=== PATIENT | female | born 1965 | race Caucasian/White ===

== ENCOUNTER 2020-07-09 13:01 | Outpatient (CLI) | payer BC | END 2020-07-09 13:02 | disposition home or self-care (01) | LOC: CSHMAMMO 13:01 | PROVIDERS: ATTEND Orthopaedic Surgery | DX: N95.9 Unspecified menopausal and perimenopausal disorder (principal); M85.852 Other specified disorders of bone density and structure, left thigh | CPT/HCPCS: 77080 ==